=== PATIENT | male | born 1965 | race Caucasian/White ===

== ENCOUNTER 2019-08-02 17:43 | Emergency (ER) | payer MEDICARE, OTHER ==
[~2019-08-02] VITALS: Ht 172.7 cm; Wt 99.8 kg
[2019-08-02] MEDS ORDERED: METF500 PO (19:31)
== END 2019-08-02 20:45 | disposition home or self-care (01) ==
LOC: ER 17:43
DX: M25.562 Pain in left knee (principal); M79.605 Pain in left leg; Z79.84 Long term (current) use of oral hypoglycemic drugs; Z87.891 Personal history of nicotine dependence
CPT/HCPCS: 93971; 99283-25

== ENCOUNTER 2021-06-19 15:57 | Inpatient (IN) | payer OTHER, MEDICARE ==
[~2021-06-19] VITALS: Ht 172.7 cm; Wt 86.5 kg
[~2021-06-19 15:57] MED LIST: METF500 PO
[2021-06-19] MEDS ORDERED: Aspir 8181 MG PO (16:10)
[2021-06-19] MEDS ORDERED: VITAMIN D32000 UNI1 PO (16:10)
[2021-06-19] MEDS ORDERED: Zestril40 MG PO (16:11)
[2021-06-19] MEDS ORDERED: ATOR80 PO (16:41)
[2021-06-19 18:32] LABS: BASOPHILS ABSOLUTE AUTO 0.07 K/mm3 (0.00-0.23); BASOPHILS PERCENT AUTO 1 % (0-2); EOSINOPHILS ABSOLUTE AUTO 0.08 K/mm3 (0.00-0.68); EOSINOPHILS PERCENT AUTO 1 % (0-6); Hematocrit 39.1 % (37.0-53.0); Hemoglobin 12.8 g/dL (13.5-17.5); IMMATURE GRAN ABSOLUTE AUTO 0.01 K/mm3 (0.00-0.10); IMMATURE GRAN PERCENT AUTO 0 % (0-1); LYMPHOCYTES ABSOLUTE AUTO 2.71 K/mm3 (0.84-5.20); LYMPHOCYTES PERCENT AUTO 32 % (21-46); MONOCYTES ABSOLUTE AUTO 0.64 K/mm3 (0.16-1.47); MONOCYTES PERCENT AUTO 8 % (4-13); Mean Corpuscular HGB 30.3 pg (26.0-34.0); Mean Corpuscular HGB Conc 32.7 g/dL (31.5-36.5); Mean Corpuscular Volume 93 fL (80-100); Mean Platelet Volume 9.9 fL (9.1-12.4); NEUTROPHILS ABSOLUTE AUTO 5.01 K/mm3 (1.96-9.15); NEUTROPHILS PERCENT AUTO 59 % (41-73); Platelet Count 211 K/mm3 (150-400); RDW Coefficient Variation 12.3 % (11.7-14.2); RDW Standard Deviation 42.2 fL (35.1-46.3); Red Blood Cell Count 4.22 M/mm3 (4.30-5.90); White Blood Cell Count 8.52 K/mm3 (4.00-11.30)
[2021-06-19 19:03] LABS: Alanine Aminotransfer (ALT/SGP 24 U/L (12-78); Albumin, Blood 3.1 g/dL (3.4-5.0); Albumin/Globulin Ratio 0.9 (0.8-1.8); Alk Phos 57 U/L (50-136); Anion Gap 3 mmol/L (6-16); Aspartate Aminotrans (AST/SGOT 20 U/L (12-37); Bilirubin, Total 0.3 mg/dL (0.1-1.0); Blood Urea Nitrogen 12 mg/dL (8-24); Bun/Creatinine Ratio 10.8 (12.0-20.0); CO2, Blood 27 mmol/L (21-32); Calcium, Blood 8.5 mg/dL (8.5-10.1); Chloride, Blood 109 mmol/L (98-108); Creatinine, Blood 1.11 mg/dL (0.60-1.20); Globulin, Blood 3.3 g/dL (2.2-4.0); Glomerular Filtration Rate >60 (60-); Glucose, Blood 102 mg/dL (70-99); Potassium, Blood 4.2 mmol/L (3.5-5.5); Sodium, Blood 139 mmol/L (136-145); Total Protein, Blood 6.4 g/dL (6.4-8.2)
--- NOTE | 2021-06-20 06:26 | NUR ---
SHIFT SUMMARY NEW ER ADMIT THIS SHIFT, A&O INDEP IN ROOM, PLEASANT & COOPERATIVE W/CARE, MEDICATED 3X FOR PAIN (05/04 ABD), NO OTHER C/O ANY KIND, BEDRESTING AT THIS TIME, CALL LIGHT IN REACH, WILL CONT TO MONITOR UNTIL REPORT GIVEN TO DAY RN.
[2021-06-20 06:30] LABS: BASOPHILS ABSOLUTE AUTO 0.07 K/mm3 (0.00-0.23); BASOPHILS PERCENT AUTO 1 % (0-2); EOSINOPHILS PERCENT AUTO 3 % (0-6); Hematocrit 40.8 % (37.0-53.0); IMMATURE GRAN ABSOLUTE AUTO 0.01 K/mm3 (0.00-0.10); IMMATURE GRAN PERCENT AUTO 0 % (0-1); LYMPHOCYTES ABSOLUTE AUTO 2.55 K/mm3 (0.84-5.20); LYMPHOCYTES PERCENT AUTO 44 % (21-46); MONOCYTES ABSOLUTE AUTO 0.46 K/mm3 (0.16-1.47); MONOCYTES PERCENT AUTO 8 % (4-13); Mean Corpuscular HGB 30.2 pg (26.0-34.0); Mean Corpuscular HGB Conc 31.9 g/dL (31.5-36.5); Mean Corpuscular Volume 95 fL (80-100); Mean Platelet Volume 10.6 fL (9.1-12.4); NEUTROPHILS ABSOLUTE AUTO 2.53 K/mm3 (1.96-9.15); NEUTROPHILS PERCENT AUTO 44 % (41-73); Platelet Count 208 K/mm3 (150-400); RDW Coefficient Variation 12.1 % (11.7-14.2); RDW Standard Deviation 42.1 fL (35.1-46.3); Red Blood Cell Count 4.31 M/mm3 (4.30-5.90); White Blood Cell Count 5.82 K/mm3 (4.00-11.30)
[2021-06-20 06:42] LABS: Albumin, Blood 2.9 g/dL (3.4-5.0); Albumin/Globulin Ratio 0.9 (0.8-1.8); Bilirubin, Total 0.4 mg/dL (0.1-1.0); Bun/Creatinine Ratio 11.1 (12.0-20.0); Calcium, Blood 8.5 mg/dL (8.5-10.1); Creatinine, Blood 1.26 mg/dL (0.60-1.20); Globulin, Blood 3.3 g/dL (2.2-4.0); Potassium, Blood 4.4 mmol/L (3.5-5.5); Total Protein, Blood 6.2 g/dL (6.4-8.2)
--- NOTE | 2021-06-20 17:09 | NUR ---
SHIFT SUMMARY PATIENT ALERT, ORIENTED, INDEPENDENT IN THE ROOM THIS SHIFT. PATIENT MEDICATED 2X FOR PAIN THIS AM, STATES PAIN IS "OKAY" THIS AFTERNOON. PATIENT ATE FULL LIQUID LUNCH WITHOUT ISSUE. PATIENT ADVANCED TO REGULAR ADA DIET FOR DINNER, AWAITING DINNER. PATIENT'S SPOUSE IN THE ROOM VISITING THIS AFTERNOON. PATIENT CURRENTLY SITTING UP IN BED WATCHING TELEVISION.
--- NOTE | 2021-06-20 19:39 | NUR ---
RECEIVED BEDSIDE REPORT FROM KAMINI RN. PT SITTING UP IN BED. RESP E/U ON RA. JUST FINISHED EATING DINNER. A/O. WILL CONTINUE TO PROVIDE CARE T/O SHIFT. CALL LT IN REACH. PT INDEP IN .
--- NOTE | 2021-06-20 19:52 | NUR ---
NO NEEDS AT THIS TIME. WILL USE CALL LT APPROPRIATELY.
--- NOTE | 2021-06-20 21:58 | NUR ---
NO NEEDS AT THIS TIME. CALL LT IN REACH.
--- NOTE | 2021-06-21 00:05 | NUR ---
PT RESTING QUIETLY, ABX INFUSING. CALL LT IN REACH.
--- NOTE | 2021-06-21 02:10 | NUR ---
PT AWAKE AND ON CELL PHONE. NO NEEDS AT THIS TIME. STATES HE'S DOING FINE. CALL LT IN REACH.
--- NOTE | 2021-06-21 05:08 | NUR ---
PT AWAKE AND ON PHONE. DENIES NEEDS. CALL LT IN REACH.
--- NOTE | 2021-06-21 05:25 | NUR ---
SHIFT SUMMARY: A/O AND INDEPENDENT IN RM. ON RA. NS AT 75 MLS/HR. BECAME A LITTLE NAUSEATED AFTER DINNER. ZOFRAN GIVEN WHICH IMPROVED THE NAUSEA. NO PAIN MEDS GIVEN. TOLERATING PO INTAKE. NO COMPLAINTS. WILL CONTINUE TO PROVIDE CARE UNTIL SHIFT REPORT.
[2021-06-21 05:35] LABS: Albumin, Blood 2.9 g/dL (3.4-5.0); Anion Gap 3 mmol/L (6-16); Blood Urea Nitrogen 15 mg/dL (8-24); Bun/Creatinine Ratio 11.5 (12.0-20.0); CO2, Blood 29 mmol/L (21-32); Calcium, Blood 8.7 mg/dL (8.5-10.1); Chloride, Blood 109 mmol/L (98-108); Creatinine, Blood 1.31 mg/dL (0.60-1.20); Glomerular Filtration Rate 57 (60-); Glucose, Blood 108 mg/dL (70-99); Phosphorus, Blood 4.3 mg/dL (2.5-4.9); Potassium, Blood 4.7 mmol/L (3.5-5.5); Sodium, Blood 141 mmol/L (136-145)
[2021-06-21] MEDS ORDERED: CIPR500 PO (10:59)
[2021-06-21] MEDS ORDERED: ONDA4 PO (11:00)
[2021-06-21] MEDS ORDERED: METR500 PO (11:00)
[2021-06-21] MEDS ORDERED: OXYC5 PO (11:01)
[2021-06-21] MEDS ORDERED: VISBIOME 112.51 EACH PO (11:02)
--- NOTE | 2021-06-21 12:11 | NUR ---
DISCHARGED HOME WITH ALL PERSONAL BELONGINGS. TEACHBACK METHOD UTILIZED AND PATIENT VERBALIZED UNDERSTANDING OF THE DISCHARGE INSTRUCTIONS.
== END 2021-06-21 12:11 | disposition home or self-care (01) | DRG 392 ==
LOC: ER 15:57 → MEDS 19:02
PROVIDERS: Emergency Medicine; Family Medicine; ADMIT Internal Medicine
DX: K57.20 Diverticulitis of large intestine with perforation and abscess without bleeding (principal); N18.2 Chronic kidney disease, stage 2 (mild); Z66 Do not resuscitate; I12.9 Hypertensive chronic kidney disease with stage 1 through stage 4 chronic kidney disease, or unspecified chronic kidney disease; E11.22 Type 2 diabetes mellitus with diabetic chronic kidney disease; E78.5 Hyperlipidemia, unspecified; F43.10 Post-traumatic stress disorder, unspecified; Z79.84 Long term (current) use of oral hypoglycemic drugs; Z79.899 Other long term (current) drug therapy; Z98.890 Other specified postprocedural states; Z87.891 Personal history of nicotine dependence; Z88.8 Allergy status to other drugs, medicaments and biological substances
CPT/HCPCS: 36415; 80053; 80069; 82947; 85025; 96365; 96367; 96375; 97110; 97161; 99285-25; A9270; J0696; J1170; J1650; J1885; J3010; J7030

== ENCOUNTER 2021-08-14 06:37 | Inpatient (IN) | payer OTHER ==
[~2021-08-14] VITALS: Ht 172.7 cm; Wt 84.0 kg
[~2021-08-14 06:37] MED LIST changes: +AMLO10 PO; +AMOCLA875 PO; +ATOR80 PO; +Aspir 8181 MG PO; +CIPR500 PO; +HYDCHL25 PO; +METR500 PO; +ONDA4 PO; +OXYC5 PO; +VISBIOME 112.51 EACH PO; +VITAMIN D32000 UNI1 PO; +Zestril40 MG PO
--- NOTE | 2021-08-14 07:44 | NUR ---
PT TO DAY SURGERY, STATES COMPLETED COLON PREP PER ORDER. RING REMOVED AND PLACED IN JACKET POCKET. LABS DRAWN FROM IV START AND SENT PER ORDER. History, Chart, Medications and Allergies reviewed before start of procedure. Pre-Op teaching done. Pt verbalizes understanding.
[2021-08-14 08:02] LABS: Alanine Aminotransfer (ALT/SGP 40 U/L (12-78); Albumin/Globulin Ratio 1.1 (0.8-1.8); Alk Phos 56 U/L (50-136); Anion Gap 6 mmol/L (6-16); Aspartate Aminotrans (AST/SGOT 24 U/L (12-37); Bilirubin, Total 0.4 mg/dL (0.1-1.0); Blood Urea Nitrogen 18 mg/dL (8-24); Bun/Creatinine Ratio 14.6 (12.0-20.0); CO2, Blood 28 mmol/L (21-32); Calcium, Blood 8.7 mg/dL (8.5-10.1); Chloride, Blood 106 mmol/L (98-108); Creatinine, Blood 1.23 mg/dL (0.60-1.20); Globulin, Blood 3.7 g/dL (2.2-4.0); Glomerular Filtration Rate >60 (60-); Glucose, Blood 145 mg/dL (70-99); Potassium, Blood 3.8 mmol/L (3.5-5.5); Prealbumin, Blood 39.3 mg/dL (20.0-40.0); Sodium, Blood 140 mmol/L (136-145); Total Protein, Blood 7.7 g/dL (6.4-8.2)
--- NOTE | 2021-08-14 14:25 | NUR ---
PT ARRIVED TO UNIT AT APPROX 1330. PT SLEEPING BUT AROUSABLE TO VERBAL STIMULI. HE ARRIVED ON 3L VIA NC, SATS STAYING BETWEEN 95-97%. LAP SITES X5, C/D/I. VITAL SIGNS STABLE. REYNOSO IN PLACE. BED ALARM ON FOR PRECAUTION.
--- NOTE | 2021-08-14 18:01 | NUR ---
SHIFT SUMMARY PT POD0 FOR JACYE LAP COLECTOMY. LAP SITES X5 C/D/I. PAIN BEING MANAGED PER EMAR. PT REPORTING PAIN IN LOWER ABDOMEN, REYNOSO FLUSHED BY PHYSICIAN TO ASSURE THAT THERE WAS NO BLOCKAGE, BLADDER SCAN DONE SHOWING NO URINARY RETENTION, PT MEDICATED AT THIS TIME. PT TRANSFERED TO CHAIR WITH MINIMAL ASSIST. VITALS STABLE. WILL REPORT TO ONCOMING RN.
[2021-08-15 04:40] LABS: Hematocrit 35.4 % (37.0-53.0); Hemoglobin 11.7 g/dL (13.5-17.5); Mean Corpuscular HGB 30.2 pg (26.0-34.0); Mean Corpuscular HGB Conc 33.1 g/dL (31.5-36.5); Mean Corpuscular Volume 91 fL (80-100); Mean Platelet Volume 10.3 fL (9.1-12.4); Platelet Count 187 K/mm3 (150-400); RDW Coefficient Variation 12.9 % (11.7-14.2); RDW Standard Deviation 42.9 fL (35.1-46.3); Red Blood Cell Count 3.88 M/mm3 (4.30-5.90); White Blood Cell Count 13.69 K/mm3 (4.00-11.30)
[2021-08-15 05:12] LABS: Bun/Creatinine Ratio 13.4 (12.0-20.0); Creatinine, Blood 1.27 mg/dL (0.60-1.20); Magnesium, Blood 1.7 mg/dL (1.6-2.4); Potassium, Blood 4.2 mmol/L (3.5-5.5)
--- NOTE | 2021-08-15 06:59 | NUR ---
08/15/21 0659 Janee Fischer VERIFICATIONS: EDIT CHART.
--- NOTE | 2021-08-15 17:26 | NUR ---
SHIFT SUMMARY PT POD1 FOR ROBOTIC LAP SIGMOID COLECTOMY. PAIN BEING MANAGED WITH PO PAIN MEDICATIONS AND IV DILAUDID FOR BREAKTHROUGH PAIN. PT BELCHING, BUT REPORTS NO FLATUS AT THIS TIME. BOWEL TONES HEARD IN ALL 4 QUADRANTS. NO NAUSEA OR VOMITING REPORTED. PT HAVING LARGE AMOUNTS OF URINARY OUTPUT THROUGHOUT SHIFT. UNABLE TO EMPTY BLADDER ENOUGH AND MD ORDERED ONE TIME STRAIGHT CATH, AT THAT TIME 1150 OUT AFTER POST VOID OF 550. BLADDER SCANNED PT @1623 AND READ 672ML, PT ABLE TO VOID 660, RESCANNED ABOUT 5 MINS LATER AND SCAN SHOWED 275ML IN BLADDER, WILL PLACE ANOTHER CALL TO MD TO FOLLOW UP. PT DOING WELL TODAY OTHERWISE, HE REPORTS FEELING MUCH BETTER. INDEPENDENT IN THE ROOM. WILL REPORT TO ONCOMING RN.
[2021-08-16 04:07] LABS: Hematocrit 35.4 % (37.0-53.0); Hemoglobin 11.4 g/dL (13.5-17.5); Mean Corpuscular HGB 29.8 pg (26.0-34.0); Mean Corpuscular HGB Conc 32.2 g/dL (31.5-36.5); Mean Corpuscular Volume 92 fL (80-100); Mean Platelet Volume 9.9 fL (9.1-12.4); Platelet Count 167 K/mm3 (150-400); RDW Coefficient Variation 12.8 % (11.7-14.2); RDW Standard Deviation 43.8 fL (35.1-46.3); Red Blood Cell Count 3.83 M/mm3 (4.30-5.90); White Blood Cell Count 9.68 K/mm3 (4.00-11.30)
[2021-08-16 04:27] LABS: Bun/Creatinine Ratio 10.2 (12.0-20.0); Calcium, Blood 8.5 mg/dL (8.5-10.1); Creatinine, Blood 1.28 mg/dL (0.60-1.20); Potassium, Blood 4.1 mmol/L (3.5-5.5)
[2021-08-16] MEDS ORDERED: OXYC5 PO (11:03)
--- NOTE | 2021-08-16 12:41 | NUR ---
DISCHARGE INSTRUCTIONS GIVEN TO PATIENT AT THIS TIME. VERBALIZED UNDERSTANDING. NO SIGNS OR SYMPTOMS ACUTE DISTRESS NOTED. ABLE TO MAKE NEEDS AND WANTS KNOWN. LEFT VIA WHEELCHAIR.
== END 2021-08-16 12:46 | disposition home or self-care (01) | DRG 331 ==
LOC: SURS 06:37 → PRE IP 08:30 → SURS 14:35
PROVIDERS: ADMIT Surgery
PROC: 0DTN4ZZ Resection of Sigmoid Colon, Percutaneous Endoscopic Approach (ICD-10-PCS; principal; 2021-08-14 08:30)
DX: K57.30 Diverticulosis of large intestine without perforation or abscess without bleeding (principal); R33.8 Other retention of urine; N18.30 Chronic kidney disease, stage 3 unspecified; E78.2 Mixed hyperlipidemia; E11.22 Type 2 diabetes mellitus with diabetic chronic kidney disease; I12.9 Hypertensive chronic kidney disease with stage 1 through stage 4 chronic kidney disease, or unspecified chronic kidney disease; G89.29 Other chronic pain; Z98.890 Other specified postprocedural states; Z79.899 Other long term (current) drug therapy; Z79.84 Long term (current) use of oral hypoglycemic drugs; Z88.5 Allergy status to narcotic agent; Z88.8 Allergy status to other drugs, medicaments and biological substances
CPT/HCPCS: 36415; 80048; 80053; 82947; 83735; 84134; 85027; 88307; A9270; J0694; J1100; J1170; J1650; J1885; J2250; J2370; J2405; J2704; J2710; J3010; J7120

== ENCOUNTER 2023-03-06 06:39 | Day surgery (SDC) | payer OTHER ==
[~2023-03-06] VITALS: Ht 172.7 cm; Wt 89.8 kg
[2023-03-06] MEDS ORDERED: ATOR40TA PO (07:03)
[2023-03-06] MEDS ORDERED: Aspir 8181 MG PO (07:04)
[2023-03-06] MEDS ORDERED: Vitamin D1000 UNI1 PO (07:04)
--- NOTE | 2023-03-06 08:22 | NUR ---
PT RETURNED TO RECOVERY ROOM IN RECLINER. RIGHT RADIAL TR BAND SITE SOFT NON-TENDER WITH NO HEMATOMA, NO PULSATILE BLEEDING WITH WRIST BOARD IN PLACE. PT'S IN ROOM; CALL LIGHT IN REACH. PT DRINKING COFFEE.
--- NOTE | 2023-03-06 08:39 | NUR ---
DR ADRIAN IN ROOM TO SEE PT. DR ADRIAN AWARE OF PT'S ONGOING CHEST PAIN.
--- NOTE | 2023-03-06 08:56 | NUR ---
PATIENT SITTING UPRIGHT IN RECLINER, CONVERSING APPROPRIATELY WITH AT BEDSIDE. PATIENT TOLERATING PO INTAKE WELL. VSS ON ROOM AIR.
--- NOTE | 2023-03-06 09:45 | NUR ---
NO CHANGES TO R RAD TR BAND SITE.
--- NOTE | 2023-03-06 10:11 | NUR ---
7 CC OF AIR REMOVED OVER 10 MIN FROM NOW DEFLATED RIGHT TR BAND; NO HEMATOMA, SOFT WITH NO PULSATILE BLEEDING. DISCHARGE INSTRUCTIONS REVIEWED AND ALL QUESTIONS ANSWERED.
--- NOTE | 2023-03-06 10:18 | NUR ---
NO CHANGES TO DEFLATED RIGHT TR BAND SITE.
--- NOTE | 2023-03-06 11:14 | NUR ---
DEFLATED RIGHT TR BAND REMOVED AND POLYMEM PLACED OVER RIGHT RADIAL SITE WITH WRIST BOARD IN PLACE; SOFT NON-TENDER WITH NO HEMATOMA, NO PULSATILE BLEEDING. 20 IV DISCONTINUED FROM R AC WITH INTACT CANNULA. PT ESCORTED OUT VIA WHEELCHAIR ESCORT.
== END 2023-03-06 11:00 | disposition home or self-care (01) ==
LOC: MHTC 06:39
DX: I25.119 Atherosclerotic heart disease of native coronary artery with unspecified angina pectoris (principal); I10 Essential (primary) hypertension; R94.31 Abnormal electrocardiogram [ECG] [EKG]; E78.2 Mixed hyperlipidemia; E11.9 Type 2 diabetes mellitus without complications; Z79.84 Long term (current) use of oral hypoglycemic drugs
CPT/HCPCS: 76937; 93454; 99152; 99153; A9270; C1769; C1894; J1644; J2250; J3010; J7030; J7050; Q9967